=== PATIENT | female | born 1965 | race Caucasian/White ===

== ENCOUNTER 2022-04-06 21:43 | Emergency (ER) | payer MEDICAID, SELFPAY ==
[2022-04-06 22:01] VITALS: BP 149/99; PULSE 109; RESP 20; TEMP 36.3; O2SAT 97; BMI 36.3
--- NOTE | 2022-04-06 22:24 | ED_ITS ---
HPI - General Adult General Chief complaint: Skin/Abscess/Foreign Body Stated complaint: yeast infection rash Time Seen by Provider: 04/06/22 22:14 History of Present Illness HPI narrative: Pt is a 56 year old woman who presents with significan tinea rash in her groin as well as under her breasts bilaterally. No fever or signs of acute bacterial infection. Pt states that she has had vaginal yeast infection in the past but her discharge at this time is minimal. Pt is treating the rash with what looks like Nystatin Creme and gold vicente powder. She also states that her blood sugars are very high but does not describe any polyuria or polydipsia. She has had no chest pain or shortness of breath,. No fever or chills. No skin break down or bleeding. She otherwise feels well. Related Data Home Medications Medication Instructions Recorded Confirmed acetaminophen 500 mg tablet 500 mg PO Q4-6H PRN 04/06/22 04/06/22 (Tylenol Extra Strength) atorvastatin 80 mg tablet (Lipitor) 80 mg PO DAILY 04/06/22 04/06/22 duloxetine 60 mg capsule,delayed 60 mg PO DAILY 04/06/22 04/06/22 release empagliflozin 25 mg tablet 25 mg PO DAILY 04/06/22 04/06/22 (Jardiance) fluticasone propionate 50 2 spray intranasal DAILY PRN 04/06/22 04/06/22 mcg/actuation nasal spray,suspension gabapentin 300 mg capsule 300 mg PO BID 04/06/22 04/06/22 insulin NPH isoph U-100 human 100 30 unit subcut BID 04/06/22 04/06/22 unit/mL subcutaneous suspension (Novolin N NPH U-100 Insulin isophane) insulin regular human 100 unit/mL 1 sliding scale dose subcut 04/06/22 04/06/22 injection solution (Novolin R USEASDIRECTD Regular U-100 Insulin) lisinopril 10 mg tablet 10 mg PO DAILY 04/06/22 04/06/22 metformin 1,000 mg tablet 1,000 mg PO BIDWMEAL 04/06/22 04/06/22 omeprazole 40 mg capsule,delayed 40 mg PO DAILY 04/06/22 04/06/22 release Allergies Allergy/AdvReac Type Severity Reaction Status Date / Time quinine Allergy Unknown Verified 04/06/22 22:07 Review of Systems Status of ROS: Reports: 10 or more systems reviewed and unremarkable except as noted in History and below [facility] Medical History Acute pancreatitis Amputated toe Cystocele Depression Diabetes mellitus treated with insulin Diabetic foot ulcer Diabetic ketoacidosis Dyslexia Gout Heavy menses History of PCOS Hypertension Morbid obesity Neuroma SHELDON on CPAP Ulcer Surgical History S/P cholecystectomy S/P rotator cuff repair Social History Smoking Status: Unknown if ever smoked How often do you have a drink containing alcohol: never AUDIT-C Alcohol total score: 0 Non-prescribed substance use: denies use service: No Exam Narrative: Exam Narrative: EXAM GENERAL: Patient appears comfortable and well. Overweight. EYES: No scleral icterus. THYROID: no thyroid nodules or thyromegaly. LYMPH: No supraclavicular or cervical lymphadenopathy. SKIN: Tinea in to review and the breast than the groin bilat is vaginal discharge noted. Nurse was Present during inspection. EXT: No dependent lower extremity pedal edema. HEART: Regular rate and rhythm with no murmurs, rubs, or gallops. LUNGS: Clear to auscultation bilaterally with no crackles or wheezes. ABD: Soft, non tender, non distended. Obese PSYCH: Good eye contact, speech is not pressured. Const: Vital Signs, click to edit/add: Vital Signs - 24 hr 04/06/22 22:01 Temperature 97.3 F L Pulse Rate [Left P ulse Oximeter] 109 H Respiratory Rate 20 Blood Pressure [Ri ght Upper Arm] 149/99 H Pulse Oximetry 97 Oxygen Delivery Me thod Room Air Course Course Hospital Course: CBC and BMP ordered Reevaluation(s) Reevaluation #1: Pt doing well. Labs reviewed. Hyperglycemia noted. Pt treated with single dose of Diflucan and will be started on topical nystatin powder with PCP follow up. Time: 23:52 Vital Signs Vital signs: Initial Vital Signs Temperature 97.3 F L 04/06/22 22:01 Temperature Source Temporal Artery Scan 04/06/22 22:01 Pulse Rate 109 H 04/06/22 22:01 Pulse Rhythm 08/29/22 22:01 Respiratory Rate 20 04/06/22 22:01 Blood Pressure 149/99 H 04/06/22 22:01 Blood Pressure Mean 115 04/06/22 22:01 Blood Pressure Position Sitting 04/06/22 22:01 Pulse Oximetry 97 04/06/22 22:01 Oxygen Delivery Method 04/06/22 22:01 Vital Signs Temperature 97.3 F L 04/06/22 22:01 Pulse Rate 109 H 04/06/22 22:01 Respiratory Rate 20 04/06/22 22:01 Blood Pressure 149/99 H 04/06/22 22:01 Pulse Oximetry 97 04/06/22 22:01 Oxygen Delivery Method 04/06/22 22:01 Temperature 97.3 F L 04/06/22 22:01 Pulse Rate 109 H 04/06/22 22:01 Respiratory Rate 04/06/22 22:01 Blood Pressure 149/99 H 04/06/22 22:01 Pulse Oximetry 97 04/06/22 22:01 Oxygen Delivery Method 04/06/22 22:01 Medical Decision Making MDM Narrative Medical decision making narrative: Pt has a history of diabetes which worsens with infection. We are treating her interigio infection and arranging primary care follow up. She will likely need further adjustments of her diabetic care moving forward. Differential Diagnosis Differential Diagnosis: Tinea, Allergic Rash, Cellulitis, Contact dermatitis Lab Data Labs: Lab Results 04/06/22 04/06/22 Range/Units 22:55 22:55 WBC 8.66 (4.50-11.00) K/uL RBC 5.03 (4.00-5.20) m/uL Hgb 14.8 (12.0-16.0) gm/dL Hct 44.3 (33.0-51.0) % MCV 88 (80-100) fL MCH 29 (26-34) pg MCHC 33 (32-36) gm/dL RDW Coeff of Case 12.6 (11.5-15.5) % Plt Count 276 (140-440) K/uL Neut % (Auto) 55.1 (42.0-72.0) % Lymph % (Auto) 31.8 (20-44) % [place] % (Auto) 7.9 (0.0-11.0) % Eos % (Auto) 4.6 (0.0-7.0) % Baso % (Auto) 0.3 (0.0-3.0) % Neut # (Auto) 4.77 (1.7-7.0) K/uL Lymph # (Auto) 2.75 (0.90-2.90) K/uL [place] # (Auto) 0.70 (0.00-0.90) K/UL Eos # (Auto) 0.40 (0.00-0.50) K/uL Baso # (Auto) 0.03 (0.00-0.30) K/uL Abs Immat Gran (auto) 0.03 (0.00-0.30) K/uL Sodium 137 (135-149) mmol/L Potassium 4.0 (3.6-5.1) mmol/L Chloride 98 (96-114) mmol/L Carbon Dioxide 32 (20-32) mmol/L BUN 10 (7-30) mg/dL Creatinine 0.7 (0.5-1.5) mg/dL Estimated Creat Clear 79.79 Estimated GFR 101 ml/min Glucose 341 H (60-115) mg/dL Calcium 9.2 (8.4-10.6) mg/dL Discharge Plan Discharge Clinical Impression: Tinea Patient Disposition: Home, Self-Care Condition: Stable Instructions: Skin Yeast Infection (ED) Additional Instructions: Over the counter nystatin powder twice daily Follow up with Primary Care Activity Level: No Restrictions Discharge Diet: Diabetic Prescriptions: No Action metformin 1,000 mg tablet 1,000 mg PO BIDWMEAL omeprazole 40 mg capsule,delayed release(DR/EC) 40 mg PO DAILY Novolin N NPH U-100 Insulin 100 unit/mL suspension 30 unit subcut BID Novolin R Regular U-100 Insuln 100 unit/mL solution 1 sliding scale dose subcut USEASDIRECTD duloxetine 60 mg capsule,delayed release(DR/EC) 60 mg PO DAILY acetaminophen [Tylenol Extra Strength] 500 mg tablet 500 mg PO Q4-6H PRN atorvastatin [Lipitor] 80 mg tablet 80 mg PO DAILY fluticasone propionate 50 mcg/actuation spray,suspension 2 spray intranasal DAILY PRN Rx Instructions: administer into each nostril lisinopril 10 mg tablet 10 mg PO DAILY gabapentin 300 mg capsule 300 mg PO BID Jardiance 25 mg tablet 25 mg PO DAILY Stand Alone Forms: [facility] Info Instructions
--- NOTE | 2022-04-06 22:25 | ED.NURSE ---
This RN acted as supervisor network control operators for MD exam.
--- NOTE | 2022-04-06 22:53 | ED.NURSE ---
Lab in to draw blood.
[2022-04-06 23:00] LABS: Basophils Absolute Auto 0.03 K/uL (0.00-0.30); Basophils Percent Auto 0.3 % (0.0-3.0); Eosinophils Percent Auto 4.6 % (0.0-7.0); Hematocrit 44.3 % (33.0-51.0); Hemoglobin* 14.8 gm/dL (12.0-16.0); Immature Granulocytes Abs Auto 0.03 K/uL (0.00-0.30); Lymphocytes Absolute Auto 2.75 K/uL (0.90-2.90); Lymphocytes Percent Auto 31.8 % (20-44); Mean Corpuscular HGB Conc 33 gm/dL (32-36); Mean Corpuscular Hemoglobin 29 pg (26-34); Mean Corpuscular Volume 88 fL (80-100); Monocytes Percent Auto 7.9 % (0.0-11.0); Neutrophils Absolute Auto 4.77 K/uL (1.7-7.0); Neutrophils Percent Auto 55.1 % (42.0-72.0); Platelet Count* 276 K/uL (140-440); RDW Coefficient of Variation % 12.6 % (11.5-15.5); Red Blood Count 5.03 m/uL (4.00-5.20); White Blood Count* 8.66 K/uL (4.50-11.00)
[2022-04-06 23:04] LABS: Slide Review Reflex No
[2022-04-06 23:13] LABS: Chloride* 98 mmol/L (96-114); Sodium* 137 mmol/L (135-149)
[2022-04-06 23:16] LABS: Blood Urea Nitrogen* 10 mg/dL (7-30); Calcium* 9.2 mg/dL (8.4-10.6); Carbon Dioxide* 32 mmol/L (20-32); Creatinine* 0.7 mg/dL (0.5-1.5); Est. Creatinine Clearance* 79.79; Estimated Glomerular Filt Rate 101 ml/min; Glucose* 341 mg/dL (60-115)
[2022-04-06] MEDS: FLUCONAZOLE 100 MG TABLET 150 MG PO (23:24)
== END 2022-04-07 00:21 | disposition home or self-care (01) ==
PROVIDERS: Emergency Provider Internal Medicine
DX: B35.3 Tinea pedis (principal)
CPT/HCPCS: 36415; 80048; 85025; 99283; A9270

== ENCOUNTER 2022-08-27 12:02 | Outpatient (CLI) | payer MEDICAID, SELFPAY ==
[2022-08-27 15:34] LABS: Chloride* 101 mmol/L (96-114)
[2022-08-27 15:35] LABS: Albumin* 4.2 g/dL (3.3-5.0); Potassium* 4.5 mmol/L (3.6-5.1); Sodium* 140 mmol/L (135-149)
[2022-08-27 15:37] LABS: Cholesterol* 213 mg/dL (90-199); Creatinine* 0.6 mg/dL (0.5-1.5); Estimated Glomerular Filt Rate 104 ml/min
[2022-08-27 15:38] LABS: Alanine Aminotransferase* 35 U/L (4-35); Alkaline Phosphatase* 117 U/L (40-150); Aspartate Amino Transferase* 31 U/L (12-35); Bilirubin Total* 0.8 mg/dL (0.1-1.5); Blood Urea Nitrogen* 13 mg/dL (7-30); Calcium* 9.5 mg/dL (8.4-10.6); Carbon Dioxide* 30 mmol/L (20-32); Glucose* 221 mg/dL (60-115); Total Protein* 7.4 g/dL (6.0-8.3); Triglycerides* 184 mg/dL (40-149)
[2022-08-27 15:39] LABS: HDL Cholesterol* 67 mg/dL (>=50); LDL Cholesterol Calculated 109 mg/dL (<100)
[2022-08-27 15:48] LABS: Creatinine Urine 109.1 mg/dL
[2022-08-27 15:51] LABS: Microalbumin Creatinine Ratio 0 mg/g (0-30); Microalbumin Urine < 1 mg/dL
[2022-08-27 16:16] LABS: Vitamin B12* 345 pg/mL (243-894)
== END 2022-08-27 12:03 | disposition home or self-care (01) ==
PROVIDERS: Visit Provider Family Medicine
DX: Z01.419 Encounter for gynecological examination (general) (routine) without abnormal findings (principal); R53.83 Other fatigue; E11.9 Type 2 diabetes mellitus without complications; E78.2 Mixed hyperlipidemia; E11.40 Type 2 diabetes mellitus with diabetic neuropathy, unspecified; I10 Essential (primary) hypertension; Z79.4 Long term (current) use of insulin
CPT/HCPCS: 80053; 80061; 82043; 82570; 82607; 84443

== ENCOUNTER 2022-11-26 15:30 | Outpatient (CLI) | payer MEDICAID, SELFPAY | END 2022-11-26 15:31 | disposition home or self-care (01) | PROVIDERS: Visit Provider Family Medicine | DX: E66.9 Obesity, unspecified (principal); E78.2 Mixed hyperlipidemia; I10 Essential (primary) hypertension; E66.01 Morbid (severe) obesity due to excess calories; E11.9 Type 2 diabetes mellitus without complications; F41.9 Anxiety disorder, unspecified | CPT/HCPCS: 80053; 80061 ==

== ENCOUNTER 2022-12-01 19:28 | Emergency (ER) | payer MEDICAID, SELFPAY ==
[2022-12-01 19:32] VITALS: BP 137/81; PULSE 105; RESP 16; TEMP 36.5; O2SAT 100; BMI 35.8
--- NOTE | 2022-12-01 20:01 | ED.ABDPAIN ---
HPI - Abdominal Pain General Time Seen by Provider: 20:01 Date Seen: 12/01/22 Chief Complaint: Abdominal Pain Stated Complaint: Abdominal pain Time Seen by Provider: 12/01/22 19:29 Source: patient Mode of arrival: ambulatory Limitations: no limitations History of Present Illness HPI narrative: Natalia is a 57-year-old female past medical history includes diabetes mellitus type 2, allergies, status post cholecystectomy presents emerged department via private car with abdominal pain. Patient states that over the last 2 weeks she has had increasing epigastric pain radiating to right upper quadrant and back. This would be intermittent worse when she lays flat however over the last few days it has been progressively constant, he has been burping having increased gas associated with it, patient states that food makes it worse, around 6 days ago she had a few episodes of vomiting, this has resolved, she denies any diarrhea, no urinary complaints. She has been sleeping in a recliner due to her symptoms. She tried some [id number] Maalox, Mylanta, Pepto-Bismol with no relief. She denies any night sweats or weight loss. She denies any smoking or alcohol use. Related Data Home Medications Medication Instructions Recorded Confirmed acetaminophen 500 mg tablet 500 mg PO Q4-6H PRN 04/06/22 12/01/22 (Tylenol Extra Strength) insulin glargine 100 unit/mL 80 unit subcut QAM 11/26/22 12/01/22 subcutaneous solution (Lantus U-100 Insulin) insulin glargine 100 unit/mL 90 unit subcut QPM 11/26/22 12/01/22 subcutaneous solution (Lantus U-100 Insulin) loratadine 10 mg tablet (Claritin) 10 mg PO QDAY 11/26/22 12/01/22 Previous Rx's Medication Instructions Recorded atorvastatin 80 mg tablet (Lipitor) 80 mg PO DAILY #90 tabs 08/27/22 duloxetine 60 mg capsule,delayed 60 mg PO DAILY #90 caps 08/27/22 release gabapentin 300 mg capsule 300 mg PO BID #180 caps 08/27/22 glyburide 5 mg-metformin 500 mg 2 tab PO BID #360 tabs 08/27/22 tablet lisinopril 10 mg tablet 10 mg PO DAILY #90 tabs 08/27/22 omeprazole 40 mg capsule,delayed 40 mg PO DAILY #90 caps 08/27/22 release azithromycin 250 mg tablet See Rx Instructions PO .COMPLEX #6 11/26/22 tabs fluticasone propionate 110 1 inh inhalation BID #12 grams 11/26/22 mcg/actuation HFA aerosol inhaler (Flovent HFA) fluticasone propionate 50 2 spray intranasal DAILY #16 grams 11/26/22 mcg/actuation nasal spray,suspension famotidine 20 mg tablet (Pepcid) 20 mg PO BID 10 days #20 tabs 12/01/22 pantoprazole 40 mg granules 40 mg PO DAILY 14 days #14 ea 12/01/22 delayed-release for susp in packet (Protonix) Allergies Allergy/AdvReac Type Severity Reaction Status Date / Time empagliflozin Allergy Intermediate yeast Verified 12/01/22 19:37 [From Jardiance] infection pollen extracts Allergy Mild Congestion Verified 12/01/22 19:37 quinine Allergy Unknown Itching Verified 12/01/22 19:37 with pins and needle sensation. Review of Systems Status of ROS Reports: 10 or more systems reviewed and unremarkable except as noted in History and below [facility] Medical History Anxiety ?F41.9 - Anxiety disorder, unspecified (ICD-10) Chronic low back pain ?M54.50 - Low back pain, unspecified (ICD-10) ?G89.29 - Other chronic pain (ICD-10) Cystocele Depression ?F32.A - Depression, unspecified (ICD-10) Diabetes mellitus type 2, insulin dependent ?E11.9 - Type 2 diabetes mellitus without complications (ICD-10) ?Z79.4 - terminal superintendent (current) use of insulin (ICD-10) Diabetic neuropathy ?E11.40 - Type 2 diabetes mellitus with diabetic neuropathy, unspecified (ICD-10) Dyslexia ?R48.0 - Dyslexia and alexia (ICD-10) GERD (gastroesophageal reflux disease) ?K21.9 - Gastro-esophageal reflux disease without esophagitis (ICD-10) History of abnormal electrocardiogram ?Z86.79 - Personal history of other diseases of the circulatory system (ICD-10) History of diabetic ulcer of foot ?Z86.31 - Personal history of diabetic foot ulcer (ICD-10) History of gastric ulcer ?Z87.11 - Personal history of peptic ulcer disease (ICD-10) History of gout ?Z87.39 - Personal history of other diseases of the musculoskeletal system and connective tissue (ICD-10) History of MRSA infection ?Z86.14 - Personal history of Methicillin resistant Staphylococcus aureus infection (ICD-10) History of pancreatitis (2011) ?Z87.19 - Personal history of other diseases of the digestive system (ICD-10) Hypertension ?I10 - Essential (primary) hypertension (ICD-10) Mixed dyslipidemia ?E78.2 - Mixed hyperlipidemia (ICD-10) Morbid obesity ?E66.01 - Morbid (severe) obesity due to excess calories (ICD-10) SHELDON on CPAP ?G47.33 - Obstructive sleep apnea (adult) (pediatric) (ICD-10) ?Z99.89 - Dependence on other enabling machines and devices (ICD-10) PCOS (polycystic ovarian syndrome) ?E28.2 - Polycystic ovarian syndrome (ICD-10) Skin candidiasis ?B37.2 - Candidiasis of skin and nail (ICD-10) Vertigo ?R42 - Dizziness and giddiness (ICD-10) Surgical History (Updated 12/01/22 @ 22:22 by Abdi Rico MD) History of amputation of toe (02/2021) ?Z89.429 - Acquired absence of other toe(s), unspecified side (ICD-10) History of ankle fusion (05/04/21) ?Z98.1 - Arthrodesis status (ICD-10) History of repair of right rotator cuff (2000) ?Z98.890 - Other specified postprocedural states (ICD-10) Mallet toe of left foot (12/25/21) ?M20.5X2 - Other deformities of toe(s) (acquired), left foot (ICD-10) S/P cholecystectomy (1991) ?Z90.49 - Acquired absence of other specified parts of digestive tract (ICD-10) Family History (Updated 08/27/22 @ 12:29 by Mary Chavez MD) Brother Cerebral aneurysm Mother Diabetes Thyroid disease Peptic ulcer disease Depression Anxiety Father Pancreatic cancer Maternal Grandmother Psychiatric illness Social History (Updated 11/26/22 @ 12:00 by Mary Chavez MD) Narrative: , 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 4 children. Nonsmoker, quit in 2008, 25 pack years Rare alcohol use, quit in 1997 no drug use, quit crack cocaine in 1996 Does not exercise Smoking Status: Former smoker Do you use any of these nicotine containing products: None Second hand tobacco smoke exposure: No How often do you have a drink containing alcohol: never AUDIT-C Alcohol total score: 0 Non-prescribed substance use: marijuana (any form) Little interest or pleasure in doing things: several days Feeling down, depressed, or hopeless: several days service: No Exam Narrative: Exam Narrative: General: No obvious distress sitting comfortably, HEENT: Pupils equal round reactive to light, extraocular muscles intact. Neck: Supple, full range of motion Lungs: Clear to auscultation bilaterally Heart: Normal sinus rhythm S1-S2 Abdomen: Tender to palpation the epigastric region and right upper quadrant, no guarding or rebound, soft, bowel sounds present Muscle skeletal: No lower extremity edema Neuro: Alert awake and oriented x3, within normal limits Const: Vital Signs, click to edit/add: Vital Signs - 24 hr 12/01/22 19:32 Temperature 97.7 F Pulse Rate [Pulse Oximeter] 105 H Respiratory Rate 16 Blood Pressure [Ri ght Forearm] 137/81 Pulse Oximetry 100 Oxygen Delivery Me thod Room Air Course Course Hospital Course: 8:00 PM: AIDET performed, vitals are normal at this time, workup will include IV peripheral, 20 mg IV Pepcid 40 mg IV Protonix will obtain CBC, CRP, point of care troponin, CMP lipase, may consider CT imaging, symptoms more related to GERD. Differential diagnosis include but not limited to life-threatening such as appendicitis, aortic aneurysm, mesentery ischemia, bowel perforation, bowel obstruction, volvulus. Other considerations inflammatory bowel disease cholecystitis pancreatitis hepatitis gastritis GERD diverticulitis pyelonephritis/UTI renal colic stone ovarian cyst/torsion dysfunctional uterine bleeding as well as other etiologies. Patient was updated on her lab results, CBC showed no leukocytosis, no anemia, metabolic panel did show elevated pancreas at 1089, C-reactive protein 1.4, ALT mildly elevated at 40 and glucose of 348, due to the elevated lipase will obtain CT abdomen pelvis with IV contrast. To give additional GI cocktail, she was given the above care and her symptoms improved. Due to shift change transfer of care was given to Dr. Kirkpatrick pending imaging. Reevaluation(s) Reevaluation #1: IMPRESSIONS: 1. Moderate wall thickening is seen in the anterior aspect of the bladder. Correlation with clinical history and urinalysis recommended to exclude cystitis. Follow-up imaging is recommended to document resolution. 2. There is a small left adrenal nodule present measuring 1 cm. Dictated by Isaac Mittal MD @ 12/01/2022 9:54:16 PM Patient was updated on her imaging results, was moderate wall thickening in the anterior aspect of the bladder, patient has no urinary symptoms. She is feeling better after above care given. 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 Return precautions given. Time: 22:07 Vital Signs Vital signs: Initial Vital Signs Temperature 97.7 F 12/01/22 19:32 Temperature Source Temporal Artery Scan 12/01/22 19:32 Pulse Rate 105 H 12/01/22 19:32 Respiratory Rate 16 12/01/22 19:32 Blood Pressure 137/81 12/01/22 19:32 Blood Pressure Mean 99 12/01/22 19:32 Blood Pressure Position Sitting 12/01/22 19:32 Pulse Oximetry 100 12/01/22 19:32 Oxygen Delivery Method Room Air 12/01/22 19:32 Vital Signs Temperature 97.7 F 12/01/22 19:32 Pulse Rate 105 H 12/01/22 19:32 Respiratory Rate 16 12/01/22 19:32 Blood Pressure 137/81 12/01/22 19:32 Pulse Oximetry 100 12/01/22 19:32 Oxygen Delivery Method Room Air 12/01/22 19:32 Temperature 97.7 F 12/01/22 19:32 Pulse Rate 105 H 12/01/22 19:32 Respiratory Rate 16 12/01/22 19:32 Blood Pressure 137/81 12/01/22 19:32 Pulse Oximetry 100 12/01/22 19:32 Oxygen Delivery Method Room Air 12/01/22 19:32 MDM - Abdominal Pain Lab Data Labs: Lab Results 12/01/22 Range/Units 20:25 WBC 9.32 (4.50-11.00) K/uL RBC 5.01 (4.00-5.20) m/uL Hgb 15.3 (12.0-16.0) gm/dL Hct 45.0 (33.0-51.0) % MCV 90 (80-100) fL MCH 31 (26-34) pg MCHC 34 (32-36) gm/dL RDW Coeff of Case 11.9 (11.5-15.5) % Plt Count 255 (140-440) K/uL Neut % (Auto) 51.2 (42.0-72.0) % Lymph % (Auto) 38.1 (20-44) % [place] % (Auto) 7.2 (0.0-11.0) % Eos % (Auto) 2.9 (0.0-7.0) % Baso % (Auto) 0.4 (0.0-3.0) % Neut # (Auto) 4.77 (1.7-7.0) K/uL Lymph # (Auto) 3.55 H (0.90-2.90) K/uL [place] # (Auto) 0.70 (0.00-0.90) K/UL Eos # (Auto) 0.27 (0.00-0.50) K/uL Baso # (Auto) 0.04 (0.00-0.30) K/uL Sodium 132 L (135-149) mmol/L Potassium 4.1 (3.6-5.1) mmol/L Chloride 98 (96-114) mmol/L Carbon Dioxide 28 (20-32) mmol/L BUN 12 (7-30) mg/dL Creatinine 0.6 (0.5-1.5) mg/dL Estimated Creat Clear 91.97 Estimated GFR 104 ml/min Glucose 348 H (60-115) mg/dL Calcium 9.4 (8.4-10.6) mg/dL Total Bilirubin 0.5 (0.1-1.5) mg/dL AST 28 (12-35) U/L ALT 40 H (4-35) U/L Alkaline Phosphatase 116 (40-150) U/L C-Reactive Protein 1.4 H (0.5-1.0) mg/dL Total Protein 7.4 (6.0-8.3) g/dL Albumin 3.9 (3.3-5.0) g/dL Lipase 1089 H (23-300) U/L POC Troponin I 0.00 L (0.01-0.04) ng/ml Discharge Plan Discharge Clinical Impression: Epigastric abdominal pain, Belching symptom, History of cholecystectomy Patient Disposition: Home, Self-Care Condition: Improved Instructions: How to Avoid and Decrease Problems with Gas (DC), Gas and Bloating (ED), Abdominal Pain (ED) Additional Instructions: To pick up truck driver oral suspension with Simethicone, Maalox or Mylanta to use every few hours as directed, take Protonix 40 mg daily, Pepcid 20 mg twice daily, follow-up with primary care provider over the next 5-7 days, discussion at that time could be made for possible upper endoscopy if no improvement with her symptoms, return if worsening symptoms.. Prescriptions: New pantoprazole [Protonix] [address] for susp in packet 40 mg PO DAILY 14 Days Qty: 14 0RF famotidine [Pepcid] 20 mg tablet 20 mg PO BID 10 Days Qty: 20 2RF No Action atorvastatin [Lipitor] 80 mg tablet 80 mg PO DAILY Qty: 90 4RF duloxetine 60 mg capsule,delayed release(DR/EC) 60 mg PO DAILY Qty: 90 1RF gabapentin 300 mg capsule 300 mg PO BID Qty: 180 4RF glyburide-metformin 5-500 mg tablet 2 tab PO BID Qty: 360 4RF lisinopril 10 mg tablet 10 mg PO DAILY Qty: 90 4RF omeprazole 40 mg capsule,delayed release(DR/EC) 40 mg PO DAILY Qty: 90 4RF insulin glargine [Lantus U-100 Insulin] 100 unit/mL solution 80 unit subcut QAM Rx Instructions: 80 units in morning, 90 units in evening insulin glargine [Lantus U-100 Insulin] 100 unit/mL solution 90 unit subcut QPM loratadine [Claritin] 10 mg tablet 10 mg PO QDAY fluticasone propionate 50 mcg/actuation spray,suspension 2 spray intranasal DAILY Qty: 16 4RF fluticasone propionate [Flovent HFA] 110 mcg/actuation HFA aerosol inhaler 1 inh inhalation BID Qty: 12 1RF azithromycin 250 mg tablet See Rx Instructions PO .COMPLEX Qty: 6 0RF Rx Instructions: For 250 mg dose pack: take 500 mg today (day 1), then 250 mg for 4 days (days 2-5) PO acetaminophen [Tylenol Extra Strength] 500 mg tablet 500 mg PO Q4-6H PRN Follow Up/Referrals: Provider,Not a Local [Primary Care Provider] - Stand Alone Forms: [employer] Info Instructions
[2022-12-01] MEDS: FAMOTIDINE 10 MG/ML inj 20 MG IVP (20:24)
[2022-12-01] MEDS: PANTOPRAZOLE SODIUM 40 MG INJ IVP (20:24)
[2022-12-01 20:31] LABS: Basophils Absolute Auto 0.04 K/uL (0.00-0.30); Basophils Percent Auto 0.4 % (0.0-3.0); Eosinophils Absolute Auto 0.27 K/uL (0.00-0.50); Eosinophils Percent Auto 2.9 % (0.0-7.0); Hemoglobin* 15.3 gm/dL (12.0-16.0); Immature Granulocytes Abs Auto 0.02 K/uL (0.00-0.30); Immature Granulocytes Pct Auto 0.2 %; Lymphocytes Absolute Auto 3.55 K/uL (0.90-2.90); Lymphocytes Percent Auto 38.1 % (20-44); Mean Corpuscular HGB Conc 34 gm/dL (32-36); Mean Corpuscular Hemoglobin 31 pg (26-34); Mean Corpuscular Volume 90 fL (80-100); Monocytes Percent Auto 7.2 % (0.0-11.0); Neutrophils Absolute Auto 4.77 K/uL (1.7-7.0); Neutrophils Percent Auto 51.2 % (42.0-72.0); Platelet Count* 255 K/uL (140-440); RDW Coefficient of Variation % 11.9 % (11.5-15.5); Red Blood Count 5.01 m/uL (4.00-5.20); White Blood Count* 9.32 K/uL (4.50-11.00)
[2022-12-01 20:35] LABS: Slide Review Reflex No
--- NOTE | 2022-12-01 20:52 | CRLHL7_ITS ---
For Patients: As a result of the Cures Act, medical imaging exams and procedure reports are released immediately into your electronic medical record. You may view this report before your referring provider. If you have questions, please contact your health care provider. INDICATION: Epigastric abdominal pain TECHNIQUE: CT Abdomen and pelvis with i.v. contrast. Coronal and sagittal reformats were obtained. CONTRAST: 100 mL Isovue 370 COMPARISON: None FINDINGS: Lower chest: Unremarkable. Liver: Unremarkable. Spleen: Unremarkable. Pancreas: Unremarkable. Gallbladder: Previous cholecystectomy noted with no significant intra- or extrahepatic biliary ductal dilatation seen. Kidney: Unremarkable. No kidney or ureteral stones or obstruction seen. Adrenal: There is a small left adrenal nodule present measuring 1 cm. Bowel: Unremarkable. The appendix is not identified. Vascular: Unremarkable. Lymph: Unremarkable. Peritoneum: Unremarkable. No pneumoperitoneum is seen. No significant ascites is noted. Pelvis: Moderate wall thickening is seen in the anterior aspect of the bladder. Soft tissue: Unremarkable. Bone: Unremarkable for age. IMPRESSIONS: 1. Moderate wall thickening is seen in the anterior aspect of the bladder. Correlation with clinical history and urinalysis recommended to exclude cystitis. Follow-up imaging is recommended to document resolution. 2. There is a small left adrenal nodule present measuring 1 cm. Dictated by Isaac Mittal MD @ 12/01/2022 9:54:16 PM Please note that all CT scans at this facility use dose modulation, iterative reconstruction, and/or weight-based dosing when appropriate to reduce radiation dose to as low as reasonably achievable. Dictated by: Isaac Mittal MD @ 12/01/2022 21:54:21 (Electronically Signed)
[2022-12-01 20:53] LABS: Albumin* 3.9 g/dL (3.3-5.0); Chloride* 98 mmol/L (96-114); Sodium* 132 mmol/L (135-149)
[2022-12-01 20:54] LABS: Potassium* 4.1 mmol/L (3.6-5.1)
[2022-12-01 20:56] LABS: Creatinine* 0.6 mg/dL (0.5-1.5); Est. Creatinine Clearance* 91.97; Estimated Glomerular Filt Rate 104 ml/min
[2022-12-01 20:57] LABS: Alanine Aminotransferase* 40 U/L (4-35); Alkaline Phosphatase* 116 U/L (40-150); Aspartate Amino Transferase* 28 U/L (12-35); Bilirubin Total* 0.5 mg/dL (0.1-1.5); Blood Urea Nitrogen* 12 mg/dL (7-30); Calcium* 9.4 mg/dL (8.4-10.6); Carbon Dioxide* 28 mmol/L (20-32); Glucose* 348 mg/dL (60-115); Lipase* 1089 U/L (23-300); Total Protein* 7.4 g/dL (6.0-8.3)
[2022-12-01 20:59] LABS: C Reactive Protein* 1.4 mg/dL (0.5-1.0)
[2022-12-01] MEDS: GI COCKTAIL (VISC LIDO/ANTACID) 30 ML PO (21:19)
== END 2022-12-01 22:32 | disposition home or self-care (01) ==
PROVIDERS: Emergency Provider Student in an Organized Health Care Education/Training Program
DX: R10.13 Epigastric pain (principal); R14.2 Eructation
CPT/HCPCS: 36415; 74177; 80053; 83690; 84484; 85025; 86140; 96374; 96375; 99283; 99284; A9270; C9113; Q9967; S0028

== ENCOUNTER 2023-02-23 11:54 | Outpatient (CLI) | payer MEDICAID, SELFPAY ==
--- NOTE | 2023-02-23 12:00 | CRLHL7_ITS ---
For Patients: As a result of the Century Cures Act, medical imaging exams and procedure reports are released immediately into your electronic medical record. You may view this report before your referring provider. If you have questions, please contact your health care provider. INDICATION: Epigastric pain. Type 2 diabetes. TECHNIQUE: 950 microcuries of Tc-99m labeled Sulfur Colloid mixed in with a predetermined solid meal. Imaging performed up to 85 minutes. FINDINGS: No scintigraphic evidence for delayed gastric emptying. Specifically the T1 half time is 47 minutes. 78 percent emptying within the 1st hour. IMPRESSION: No scintigraphic evidence for delayed gastric emptying. Dictated by Ronak Angelo MD @ 02/24/2023 9:11:36 AM (Electronically Signed)
== END 2023-02-23 11:55 | disposition home or self-care (01) ==
LOC: NM 11:55
PROVIDERS: PCP Family Medicine; Visit Provider Family Medicine
DX: R10.13 Epigastric pain (principal); E11.9 Type 2 diabetes mellitus without complications
CPT/HCPCS: 78264; A9541

== ENCOUNTER 2023-03-23 14:13 | Outpatient (CLI) | payer MEDICAID, SELFPAY | END 2023-03-23 14:14 | disposition home or self-care (01) | LOC: NFLDREF 03-26 20:05 | PROVIDERS: PCP Family Medicine; Referring Provider Family Medicine; Visit Provider Family Medicine | DX: I10 Essential (primary) hypertension (principal); E11.9 Type 2 diabetes mellitus without complications; R10.9 Unspecified abdominal pain; Z79.4 Long term (current) use of insulin | CPT/HCPCS: 80053; 82150; 83690 ==

== ENCOUNTER 2023-04-14 15:15 | Outpatient (RCR) | payer MEDICAID, SELFPAY | END 2023-08-12 23:59 | disposition home or self-care (01) | PROVIDERS: PCP Family Medicine; Visit Provider Family Medicine | DX: R26.89 Other abnormalities of gait and mobility (principal); R26.81 Unsteadiness on feet; R53.1 Weakness; Z51.89 Encounter for other specified aftercare | CPT/HCPCS: 97110; 97112; 97162; 97530 ==

== ENCOUNTER 2023-05-25 14:07 | Outpatient (CLI) | payer MEDICAID, SELFPAY ==
--- NOTE | 2023-05-25 14:00 | CRLHL7_ITS ---
For Patients: As a result of the Century Cures Act, medical imaging exams and procedure reports are released immediately into your electronic medical record. You may view this report before your referring provider. If you have questions, please contact your health care provider. INDICATION: Acute abdominal pain, acid reflux. COMPARISON: 12/25/2022 and 12/01/2022. TECHNIQUE: CTA abdomen and pelvis. 111 cc Isovue 370. At the request of the ordering physician, 3D reconstructed images were created on an independent workstation for enhanced visualization of anatomy and pathology. FINDINGS: Unfortunately, the timing of the acquisition is off. Perhaps an initial set of images were obtained too late with contrast seen in the collecting system, and in the nephrographic phase, and repeat CTA images unfortunately are acquired somewhat to early, with poor evaluation below the level of the renals. Mild atherosclerotic disease is seen. No aneurysm. Patent visceral arteries and renal arteries. Diffuse hepatic steatosis. No new focal or diffuse pulmonary opacities in the lung base. No splenomegaly. Stable tiny left adrenal adenoma. The pancreas appears unremarkable. Cholecystectomy change. No intra or extrahepatic biliary ductal dilatation. Kidneys are normal in appearance. No obvious abnormality in the uterus or adnexa on CT. Urinary bladder appears unremarkable. No free intraperitoneal air or fluid. Visualized bowel is nondistended. Colonic diverticulosis. No convincing CT evidence for colonic diverticulitis. Tiny fat containing paraumbilical hernia. The splenic, hepatic, portal and mesenteric veins are patent. No aggressive appearing osseous lesion. Degenerative changes are worst at L2-L3, where there is at least moderate severity spinal canal stenosis. IMPRESSION: 1. Diffuse hepatic steatosis. Tiny hiatal hernia. No suspicious vascular abnormalities, although suboptimal acquisition of the images (timing). 2. Degenerative changes with at least moderate severity spinal canal stenosis at L5-S1. Additionally, a prominent posterior disc osteophyte at L5-S1 appears to contact and mildly displace the descending S1 nerve root. 3. Tiny fat containing umbilical hernia. Please note that all CT scans at this facility use dose modulation, iterative reconstruction, and/or weight-based dosing when appropriate to reduce radiation dose to as low as reasonably achievable. Dictated by Louis Farmer MD @ 05/26/2023 9:27:45 PM (Electronically Signed)
[2023-05-25 14:47] LABS: Creatinine* 0.6 mg/dL (0.5-1.5); Estimated Glomerular Filt Rate 103 ml/min
== END 2023-05-25 14:08 | disposition home or self-care (01) ==
LOC: CT 14:08
PROVIDERS: PCP Family Medicine; Visit Provider Physician Assistant Medical
DX: R10.9 Unspecified abdominal pain (principal); K76.0 Fatty (change of) liver, not elsewhere classified; K42.9 Umbilical hernia without obstruction or gangrene; M48.07 Spinal stenosis, lumbosacral region; R11.2 Nausea with vomiting, unspecified; R19.7 Diarrhea, unspecified
CPT/HCPCS: 36415; 74174; 82565; Q9967

== ENCOUNTER 2023-07-14 09:09 | Outpatient (CLI) | payer MEDICAID, SELFPAY | END 2023-07-14 09:10 | disposition home or self-care (01) | LOC: NFLDREF 07-15 10:13 | PROVIDERS: PCP Family Medicine; Referring Provider Family Medicine; Visit Provider Family Medicine | DX: E11.9 Type 2 diabetes mellitus without complications (principal); I10 Essential (primary) hypertension; R10.13 Epigastric pain; Z79.4 Long term (current) use of insulin | CPT/HCPCS: 80053; 82150; 83690 ==